=== PATIENT | female | born 1980 | race Caucasian/White ===

== ENCOUNTER 2020-10-25 08:05 | Inpatient (IN) | payer OTHER, BC ==
[~2020-10-25 08:05] MED LIST: Dexamethasone 4 MG/ML SDV ONE; Glycopyrrolate 0.2 MG/ML 5 ML MDV ONE; Neostigmine Methylsulfate 1 MG/ML 5 ML Syringe ONE; Ondansetron 4 MG/2 ML SDV ONE; Propofol 200 MG/20 ML SDV ONE; Rocuronium 50 MG/5 ML Vial ONE; Succinylcholine 200 MG/10 ML MDV ONE; cefOXitin 2 GM Vial ONE; fentaNYL 250 MCG/5 ML SDV ONE
[2020-10-25] MEDS ORDERED: Acetaminophen 500 MG Tab PO ONE (08:15)
[2020-10-25] MEDS ORDERED: Celecoxib 200 MG Cap PO SCH (08:15)
[2020-10-25] MEDS ORDERED: Scopolamine 1.5 MG Transdermal Patch TOP SCH (08:15)
[2020-10-25] MEDS ORDERED: Magnesium Sulfate/Water 2 GM/50 ML BAG IV SCH ×3 (09:00→09:15)
[2020-10-25] MEDS ORDERED: Ketamine 50 MG in Sodium Chloride 0.9% 49.5 ML IV SCH (09:15)
[2020-10-25] MEDS ORDERED: Levofloxacin/Dextrose 5%-Water 500 MG in Premix Bag 1 BAG IV ONE (09:15)
[2020-10-25] MEDS ORDERED: Ketamine 500 MG/5 ML MDV IV SCH (09:15)
[2020-10-25] MEDS ORDERED: Dextrose 5%-Lactated Ringers 1,000 ML IV SCH (09:15)
[2020-10-25] MEDS ORDERED: Albuterol/Ipratropium 3.0-0.5 MG/3 ML Neb Soln NEB SCH (09:15)
[2020-10-25] MEDS ORDERED: MAGNESIUM SULFATE IV ONE (09:45)
[2020-10-25] MEDS ORDERED: SODIUM CHLORIDE 0.9% IV ONE (09:45)
[2020-10-25] MEDS ORDERED: fentaNYL 250 MCG/5 ML SDV ONE (10:26)
[2020-10-25] MEDS ORDERED: Labetalol 20 MG/4 ML Syringe ONE (11:28)
[2020-10-25] MEDS ORDERED: fentaNYL 100 MCG/2 ML SDV ONE (11:34)
[2020-10-25] MEDS ORDERED: Levofloxacin 500 MG/20 ML SDV ONE (11:45)
[2020-10-25] MEDS ORDERED: Sugammadex Sodium 200 MG/2 ML VIAL ONE (12:09)
[2020-10-25] MEDS ORDERED: hydrOXYzine HCL 100 MG/2 ML SDV IM ONE (12:29)
[2020-10-25] MEDS ORDERED: fentaNYL 100 MCG/2 ML SDV IVPUSH ONE (12:29)
--- NOTE | 2020-10-25 13:33 | CR ---
CHEST: Portable 10/25/2020 at 12:33 PM CLINICAL HISTORY:Central line placement COMPARISON:None FINDINGS: There is a left subclavian catheter in place. The tip is in the upper right atrium. There is no pneumothorax. There is a surgical drain in the left upper quadrant. Heart and pulmonary vascularity are normal. IMPRESSION: Left subclavian catheter tip is in the right atrium. Left upper quadrant drain No acute cardiopulmonary process
[2020-10-25] MEDS ORDERED: Cyclobenzaprine 10 MG Tab PO PRN (13:41)
[2020-10-25] MEDS: Dextrose 5%-Lactated Ringers 1,000 ML IV SCH (13:55)
[2020-10-25] MEDS ORDERED: diphenhydrAMINE 50 MG/ML SDV IVPUSH PRN (14:00)
[2020-10-25] MEDS ORDERED: Acetaminophen 500 MG Tab PO PRN (14:00)
[2020-10-25] MEDS ORDERED: HYDROmorphone 0.5 MG/0.5 ML Syringe IVPUSH PRN (14:00)
[2020-10-25] MEDS ORDERED: Albuterol/Ipratropium 3.0-0.5 MG/3 ML Neb Soln INH PRN (14:00)
[2020-10-25] MEDS ORDERED: HYDROmorphone 1 MG/ML Syringe IV PRN (14:00)
[2020-10-25] MEDS ORDERED: Labetalol 20 MG/4 ML Syringe IVPUSH PRN (14:00)
[2020-10-25] MEDS ORDERED: Metoclopramide 10 MG/2 ML SDV IVPUSH PRN (14:00)
[2020-10-25] MEDS ORDERED: Calcium Gluconate 10% 1 GM/10 ML SDV IVPUSH PRN (14:00)
[2020-10-25] MEDS ORDERED: oxyCODONE 5 MG Tab PO PRN (14:00)
[2020-10-25] MEDS ORDERED: Ondansetron 4 MG/2 ML SDV IVPUSH PRN (14:00)
[2020-10-25] MEDS ORDERED: Zolpidem 5 MG Tab PO PRN (14:15)
[2020-10-25] MEDS: Albuterol/Ipratropium 3.0-0.5 MG/3 ML Neb Soln INH SCH ×2 (14:20→20:04)
[2020-10-25] MEDS ORDERED: NURTEC 75 MG PO PRN (15:35)
[2020-10-25] MEDS: hydrOXYzine HCL 100 MG/2 ML SDV IM PRN ×2 (15:47→23:50)
[2020-10-25] MEDS: traMADol 50 MG Tab PO PRN ×2 (15:47→23:05)
[2020-10-25] MEDS: Acetaminophen 500 MG Tab PO SCH ×2 (15:47→23:06)
[2020-10-25] MEDS: Pantoprazole 40 MG Vial IVPUSH SCH (15:48)
[2020-10-25] MEDS ORDERED: MVI, Adult with Vitamin K 10 ML, Thiamine 200 MG, Zinc/Copper/Manganese/Selenium 1 ML i... IV SCH ×4 (16:00)
[2020-10-25] MEDS: Paliperidone 3 MG Tab.ER PO SCH (20:05)
[2020-10-25] MEDS: busPIRone 10 MG Tab PO SCH (20:05)
[2020-10-25] MEDS: Heparin Sodium 5,000 Units/ML Vial SUBCUT SCH (20:05)
[2020-10-25] MEDS: Zonisamide 50 MG Capsule PO SCH (20:05)
[2020-10-25] MEDS: lamoTRIgine 100 MG Tab PO SCH (20:06)
[2020-10-25] MEDS: Losartan 25 MG Tab PO SCH (20:06)
[2020-10-25] MEDS: Venlafaxine 75 MG Tab PO SCH (20:06)
[2020-10-26] MEDS: Dextrose 5%-Lactated Ringers 1,000 ML IV SCH ×2 (00:51→09:40)
[2020-10-26] MEDS ORDERED: Iopamidol 612 MG/ML 50 ML SDV PO STA (03:27)
[2020-10-26] MEDS ORDERED: Ondansetron 4 MG Tab.DIS PO PRN (06:59)
[2020-10-26] MEDS ORDERED: hydrOXYzine HCl 25 MG Tab PO PRN (06:59)
[2020-10-26] MEDS: Albuterol/Ipratropium 3.0-0.5 MG/3 ML Neb Soln INH SCH ×4 (07:15→20:47)
[2020-10-26] MEDS: Acetaminophen 500 MG Tab PO SCH ×2 (07:34→16:29)
[2020-10-26] MEDS: Levothyroxine 25 MCG Tab PO SCH (07:35)
[2020-10-26] MEDS: traMADol 50 MG Tab PO PRN ×3 (07:35→21:05)
--- NOTE | 2020-10-26 08:52 | PN ---
DATE OF SERVICE: 10/26/2020 SUBJECTIVE: Upper GI this morning was normal. Vital signs have been stable. She has been up ambulating. Oral intake 980, urine output 2800. MANJINDER drain put out 75 mL of a light pink drainage. She has no questions or concerns and pain has been managed. OBJECTIVE: GENERAL: Mechelle is a pleasant 39-year-old female. She is alert, orientated, but quite sleepy. VITAL SIGNS: TPR is 98, 88, 20. Blood pressure 131/75. HEENT: Negative. NECK: Supple. HEART: Regular rate and rhythm. LUNGS: Clear. ABDOMEN: Abdominal binder is on and MANJINDER drain as above. EXTREMITIES: Without peripheral edema. ASSESSMENT: 1. Insertion of left subclavian triple-lumen catheter. 2. Laparoscopic sleeve gastrectomy. 3. Liver biopsy. 4. Repair of diaphragmatic hernia with mesh. 5. Excision of perigastric lymph node. Postop diagnoses: 1. Inadequate peripheral access. 2. Morbid obesity. 3. Hepatomegaly. 4. Large paraesophageal diaphragmatic hernia. 5. Enlarged perigastric lymph node. Date of procedure: 10/25/2020. Surgeon: Saul Garcia MD. PLAN: 1. Decrease IV to 100 mL per hour. 2. Step 2 gastric bypass diet without cereal. 3. Atarax 50 mg q.4 hours p.r.n. pain. 4. Zofran ODT 4 mg q.4 hours p.r.n. nausea. 5. Dressing off, may shower. 6. Communication order, 3 med cups per hour, 1 every 20 minutes, record at bedside. 7. Continue use of incentive spirometer. 8. We will evaluate p.r.n. or in a.m. Heather Garcia PA-C /[id number]
[2020-10-26] MEDS ORDERED: SCOPOLAMINE PATCH CHECK TOP SCH (09:00)
[2020-10-26] MEDS: Venlafaxine 75 MG Tab PO SCH ×2 (09:35→20:46)
[2020-10-26] MEDS: busPIRone 10 MG Tab PO SCH ×2 (09:35→20:45)
[2020-10-26] MEDS: Methylphenidate 10 MG Tab PO SCH ×2 (09:35→11:46)
[2020-10-26] MEDS: Heparin Sodium 5,000 Units/ML Vial SUBCUT SCH ×2 (09:35→20:45)
[2020-10-26] MEDS: Levofloxacin/Dextrose 5%-Water 500 MG in Premix Bag 1 BAG IV SCH (09:35)
[2020-10-26] MEDS: Celecoxib 200 MG Cap PO SCH ×2 (09:35→20:47)
--- NOTE | 2020-10-26 09:46 | CR ---
UGI Limited HISTORY: Postbariatric surgery FINDINGS: Patient swallowed water-soluble contrast. Upright views of the abdomen show no evidence of extravasation or obstruction. There is a surgical drain in the left upper quadrant. IMPRESSION: Status post bariatric surgery No extravasation or obstruction seen
[2020-10-26] MEDS: Rizatriptan 10 MG Tab.DIS PO PRN ×2 (11:47→17:38)
[2020-10-26] MEDS ORDERED: MVI, Adult with Vitamin K 10 ML, Thiamine 200 MG, Zinc/Copper/Manganese/Selenium 1 ML i... IV SCH ×4 (16:00)
[2020-10-26] MEDS: Pantoprazole 40 MG Vial IVPUSH SCH (16:29)
[2020-10-26] MEDS: Paliperidone 3 MG Tab.ER PO SCH (20:45)
[2020-10-26] MEDS: Zonisamide 50 MG Capsule PO SCH (20:46)
[2020-10-26] MEDS: Losartan 25 MG Tab PO SCH (20:46)
[2020-10-26] MEDS: lamoTRIgine 100 MG Tab PO SCH (20:47)
[2020-10-27] MEDS: Rizatriptan 10 MG Tab.DIS PO PRN ×2 (00:26→07:08)
[2020-10-27] MEDS: Acetaminophen 500 MG Tab PO SCH ×2 (00:28→07:09)
[2020-10-27] MEDS: Dextrose 5%-Lactated Ringers 1,000 ML IV SCH (02:49)
[2020-10-27] MEDS: Levothyroxine 25 MCG Tab PO SCH (07:08)
[2020-10-27] MEDS: Heparin Sodium 5,000 Units/ML Vial SUBCUT SCH (07:09)
[2020-10-27] MEDS: Methylphenidate 10 MG Tab PO SCH (07:12)
[2020-10-27] MEDS: Albuterol/Ipratropium 3.0-0.5 MG/3 ML Neb Soln INH SCH ×2 (07:31→11:00)
[2020-10-27] MEDS: busPIRone 10 MG Tab PO SCH (08:07)
[2020-10-27] MEDS: Celecoxib 200 MG Cap PO SCH (08:08)
[2020-10-27] MEDS: Venlafaxine 75 MG Tab PO SCH (08:08)
[2020-10-27] MEDS ORDERED: Cyanocobalamin (Vitamin B12) 1,000 MCG/ML SDV IM ONE (09:00)
[2020-10-27] MEDS: Levofloxacin/Dextrose 5%-Water 500 MG in Premix Bag 1 BAG IV SCH (09:14)
[2020-10-27] MEDS: traMADol 50 MG Tab PO PRN (11:07)
--- NOTE | 2020-10-29 08:44 | DISCH ---
FINAL DIAGNOSES: 1. Morbid obesity. 2. Marked hepatomegaly. 3. Paraesophageal diaphragmatic hernia. 4. Large perigastric lymph node. 5. Limited peripheral venous access. SECONDARY DIAGNOSES: 1. History of hypertension. 2. History of obstructive sleep apnea. 3. History of gastroesophageal reflux disease. 4. History of asthma. 5. History of anxiety and bipolar mood disorder. OPERATIVE PROCEDURES: Done on 10/25/2020: 1. Diagnostic laparoscopy with: a. Laparoscopic sleeve gastrectomy. b. Nick-Cut needle liver biopsy. c. Repair of paraesophageal diaphragmatic hernia with mesh. d. Excision of perigastric lymph node. 2. Insertion of left subclavian vein triple-lumen catheter. SUMMARY: This is a 39-year-old female presenting with longstanding morbid obesity and increasingly significant comorbidities. After preoperative evaluation, the patient wished to undergo a sleeve gastrectomy. Even with her relatively high BMI, it was felt to be the best procedure given the patient's extensive use of various psychiatric medications. The procedure as outlined above was done on the date of admission without difficulty. She had very limited peripheral venous access. A central line was placed after induction of anesthetic which will be removed at the time of discharge today. Otherwise, she is tolerating a step-2 diet and will stay on that for the next month and she will be following up with Heather Garcia at [facility] in roughly 10 days. Medications on discharge include all of her usual medications plus Tylenol and Celebrex, and we will also give her Ultram 50 mg q.6 hours p.r.n. pain, #12. /[id number]
--- NOTE | 2020-11-07 12:42 | OR ---
DATE OF PROCEDURE: 10/25/2020 SURGEON: Saul Garcia MD PREOPERATIVE DIAGNOSES: 1. Morbid obesity. 2. Inadequate peripheral venous access. POSTOPERATIVE DIAGNOSES: 1. Inadequate peripheral venous access. 2. Morbid obesity. 3. Hepatomegaly. 4. Large paraesophageal diaphragmatic hernia. 5. Large perigastric lymph node. PROCEDURES PERFORMED: 1. Insertion of left subclavian vein triple-lumen catheter (04763). 2. Diagnostic laparoscopy with: a. Laparoscopic sleeve gastrectomy (33175). b. Nick-Cut needle liver biopsy (12072). c. Repair of paraesophageal diaphragmatic hernia with mesh (47347). d. Excision of perigastric lymph node (07403). ANESTHESIA: General. PLANNING COORDINATOR: Heather Garcia PA-C INDICATIONS FOR PROCEDURE: A 39-year-old female presenting with longstanding morbid obesity and increasingly significant comorbidities. After preoperative evaluation and discussion, she wished to proceed with a sleeve gastrectomy. Potential risks of the procedure including bleeding, infection, injury to underlying viscera, problems with leaks from the staple lines, as well as the possibility of cardiopulmonary, septic, or hemorrhagic complications leading to were discussed, and the patient wishes to proceed. Of note, she had a very poor peripheral venous access, and per Anesthesia, central line was requested follow induction of the anesthetic. Potential risks of that procedure including bleeding, infection, pneumohemothorax, vascular injury, or likewise were reviewed, and the patient wishes to proceed. DETAILS OF PROCEDURE: The patient was taken to the operating room, and after general endotracheal anesthesia was induced, the upper chest and neck areas were prepped and draped. The left subclavian vein was cannulated, guidewire passed, and over the guidewire, a triple- lumen catheter positioned. Good in and outflow was noted through the catheter. Ports were flushed with heparinized saline and the catheter sutured to the skin with some 3-0 silk stitch. Dressing was applied. Subsequent chest x-ray showed good catheter position without complications. The patient was now placed in a lithotomy position and the abdomen prepped and draped. 15 cm inferior and 5 cm left of the xiphoid process, a transverse incision was made and the peritoneal cavity entered under direct vision with an Optiview trocar and inflated to 15 mmHg pressure with CO2. The laparoscope was then reinserted. No underlying trocar insertion site injuries were seen. Following this, 5 additional trocars were placed across the upper mid abdomen, and bilateral transversus abdominis plane blocks were placed. The patient was noted to have marked hepatomegaly with the liver being grossly fatty infiltrated. Nick-Cut needle biopsies were obtained from the left lobe of the liver. Minimal bleeding from the biopsy sites was controlled with electrocautery. At this point, the pylorus was identified, and the greater curvature of the stomach then marked 2 cm proximal to that where the resection process would be undertaken. The omentum was then divided away from the greater curvature of the stomach at that point proximally up to and through the highest and posterior short gastric vessels. The patient was noted to have quite large paraesophageal hernia containing some perigastric fat with some omentum prolapsed along the course of the esophagus. The peritoneum overlying this was incised and reduced. A posterior crural repair was then accomplished with 0 Ethibond sutures reinforced with PTFE pledgets. Given the extent of the hernia, Phasix ST mesh was then fashioned and cut in a horseshoe-shaped configuration to fit across the crural repair underneath the esophagus and alongside of the crura on each side, and the mesh was then fixed to the diaphragm with some titanium tacking screws. During the course of dissection, the patient also noted to have a significantly large perigastric lymph node which was removed and sent for histologic evaluation as well. Following this, the initial lines of resection across the antrum and underneath the incisura angularis was marked out with electrocautery with care taken to avoid overtightening of the incisura angularis, first 3 firings of the resectional procedure with this beginning 2 cm proximal to the pylorus with unreinforced black loads. Following this, a 32-Romansh orogastric tube was placed per Anesthesia, positioned along the lesser curvature of the stomach, and placed on suction. Remainder of the sleeve gastrectomy was then completed using that tube as a template and the remaining. Staple lines with a combination of reinforced black and reinforced purple loads. The gastric specimen was then position off the side. The gastrectomy staple line appeared to be intact. The tube was taken off suction at this point and after a fibrin sealant was applied to the sleeve gastrectomy, focusing on the area of the esophagogastric junction. Air was injected while the area was covered with antibiotic-containing saline solution. No leaks were identified or bleeding problems. The omentum was then tacked up against the staple line and secured either by means of the fibrin sealant versus some stitches up in the area of the gastroesophageal junction. The surgical specimen was then delivered from the left lateral trocar site, and through that trocar site, then a 12-Romansh Yonathan-Hickey drain was then placed and positioned across the area of the esophagogastric junction, and from there, up into the splenic fossa. The trocars were removed and the peritoneal cavity deflated. The incisions were closed with 4-0 Vicryl skin stitch. Dressing was applied. The patient was taken to the recovery room in satisfactory condition. Physician Supervisor Pumping, Kylie Garcia, played an essential role in assisting in this case, helping to position the patient, retract structures as needed, as well as suturing and cutting sutures when indicated. Her presence improved the patient's safety and decreased operative time. Saul Garcia MD /[id number]
== END 2020-10-27 11:40 | disposition home or self-care (01) | DRG 621 ==
LOC: JP.SDS 08:05 → JP.SDSSCHI 08:05 → EDSTATUS 10:45 → JP.MS 12:20
PROVIDERS: ADMIT Surgery; ATTEND Surgery
PROC: 0DB64Z3 Excision of Stomach, Percutaneous Endoscopic Approach, Vertical (ICD-10-PCS; principal; 2020-10-25)
PROC: 0FB24ZX Excision of Left Lobe Liver, Percutaneous Endoscopic Approach, Diagnostic (ICD-10-PCS; 2020-10-25)
PROC: 0BUT4JZ Supplement Diaphragm with Synthetic Substitute, Percutaneous Endoscopic Approach (ICD-10-PCS; 2020-10-25)
PROC: 07BC4ZX Excision of Pelvis Lymphatic, Percutaneous Endoscopic Approach, Diagnostic (ICD-10-PCS; 2020-10-25)
PROC: 05H633Z Insertion of Infusion Device into Left Subclavian Vein, Percutaneous Approach (ICD-10-PCS; 2020-10-25)
DX: E66.01 Morbid (severe) obesity due to excess calories (principal); R16.0 Hepatomegaly, not elsewhere classified; K44.9 Diaphragmatic hernia without obstruction or gangrene; I10 Essential (primary) hypertension; G47.30 Sleep apnea, unspecified; K21.9 Gastro-esophageal reflux disease without esophagitis; F31.9 Bipolar disorder, unspecified; F41.9 Anxiety disorder, unspecified; R59.0 Localized enlarged lymph nodes; Z68.43 Body mass index [BMI] 50.0-59.9, adult; Z86.16 Personal history of COVID-19; Z79.890 Hormone replacement therapy; Z79.899 Other long term (current) drug therapy
CPT/HCPCS: 36415; 71045; 71045-26; 74240; 74240-26; 82947; 86850; 86900; 86901; 88305; 88307; 88313; 94640; 94762; A9270-GY; C1713; C1781; C9113; J0171; J0330; J0694; J1100; J1170; J1642; J1644; J1956; J2405; J2704; J2710; J2795; J3010; J3410; J3411; J3420; J3475; J3490; J7050; J7121; J7620-GY; Q9967